=== PATIENT | female | born 1935 | race African-American/Black ===

== ENCOUNTER → 2017-06-12 | Day surgery (SDC) | payer MEDICARE ==
[~2017-06-12] MED LIST: AMIO200T PO; AMLO10 PO; AMMO12LO TOPICAL; ATOR40TA16 PO; BUPIVACAINE HCL PF 0.5% 30 ML VIAL ONE; CHLORHEXIDINE GLUCONATE 2 % 1 PACK (2 CLOTHS) TOPICAL PRN; DILT90TA PO; DO NOT ADM ANY ANTICOAGULANT DRUGS PRN; FAMO1TAB30 PO; GLIP5TAB8 PO; HEPARIN SODIUM - IV 10,000 UNITS/10 ML VIAL ONE; HEPARIN-NS/PF INJ 500 ML ONE; Hemodialysis Vas Acc Cath PRN Heparin 1000 unit/ml Flush IV FLUSH; Hemodialysis Vas Access Cath PRN NS Lock Flush IV FLUSH; LACTATED RINGER'S 1000 ML IV PRN; LANTUS2P SQ; LEVO100T5 PO; LIDOCAINE HCL 1% PF 5 ML SYRINGE OTHER ONE; LISI-515 PO; LORA0.5T PO; METO-424 PO; METO100T PO; METOPROLOL TARTRATE 25 MG TAB PO PRN; NOVOLOGP2 SQ; PHENYLEPH/NS 1000 MCG/10 ML SYR IV ONE; POVIDONE IODINE 5% (ANTISEPSIS KIT) 4 APPLICATIONS EACH NARE PRN; PRAV20TA2 PO; PROPOFOL 200 MG/20 ML AMP IV ONE; PROTAMINE SULFATE 50 MG/5 ML VIAL ONE; RENATAB5 PO; RISP1 PO; SODIUM CHLORID 0.9% 500 ML INJ 500 ML IV ONE; SODIUM CHLORID 0.9% 500 ML IV PRN; SYNT88TA PO; THROMBIN (TOPICAL) 20,000 UNIT SPRAY KIT ONE; TYLE325T PO; VANCOMYCIN HCL 1000 MG VIAL ONE; VITA2000 PO; WARF-18 PO; WARF4TAB51 PO; ePHEDrine/NS 25 MG/5 ML SYRINGE IV ONE
[2017-06-12 11:47] LABS: AUTOMATED NEUTROPHIL # 5.2 TH/MM3 (1.8-7.7); BASOPHIL % 0.5 % (0.0-2.0); EOSINOPHIL % 0.2 % (0.0-4.0); HEMATOCRIT 36.7 % (35.0-46.0); HEMOGLOBIN 12.3 GM/DL (11.6-15.3); LYMPH % 6.7 % (9.0-44.0); LYMPHOCYTE # 0.4 TH/MM3 (1.0-4.8); MEAN CELL VOLUME 93.7 FL (80.0-100.0); MEAN CORPUSCULAR HEMOGLOBIN 31.4 PG (27.0-34.0); MEAN CORPUSCULAR HGB CONC 33.5 % (32.0-36.0); MEAN PLATELET VOLUME 8.9 FL (7.0-11.0); MONO % 4.1 % (0.0-8.0); MONOCYTE # 0.2 TH/MM3 (0-0.9); NEUT % 88.5 % (16.0-70.0); PLATELET COUNT 194 TH/MM3 (150-450); RED BLOOD COUNT 3.92 MIL/MM3 (4.00-5.30); RED CELL DISTRIBUTION WIDTH 13.8 % (11.6-17.2); WHITE BLOOD COUNT 5.9 TH/MM3 (4.0-11.0)
[2017-06-12 11:53] LABS: PROTHROMBIN TIME - PATIENT 10.4 SEC (9.8-11.6)
[2017-06-12 12:06] LABS: BICARBONATE 28.5 MEQ/L (21.0-32.0); CALCIUM 8.6 MG/DL (8.5-10.1); CREATININE 2.77 MG/DL (0.50-1.00)
--- NOTE | 2017-06-12 16:54 | MP ---
cc: Jayden Porter MD, Robert J MD DATE OF OPERATION: 06/12/2017 PREOPERATIVE DIAGNOSIS: Endstage renal disease, need for dialysis access. POSTOPERATIVE DIAGNOSIS: Endstage renal disease, need for dialysis access. PROCEDURE PERFORMED: Left brachial artery axillary vein arteriovenous graft with 6 mm PTFE. SURGEON: Jayden Porter MD JAILOR SURGEON: Rocky Franz MD ANESTHESIA: General. INDICATIONS FOR PROCEDURE: Ms. Shin is an 82-year-old lady who has end-stage renal disease and needs dialysis access. She has no autogenous access option and she is taken to the operating room for left brachial artery axillary vein arteriovenous graft. DESCRIPTION OF PROCEDURE: Informed consent was obtained from the patient and she was taken to the operating room and placed supine on the operating table. An appropriate timeout was taken to ensure the patient's identity, operative site and planned procedure. Administration of 1 gram of vancomycin was initiated prior to skin incision and will be discontinued after a single preoperative dose. Vancomycin was chosen because of the patient's end-stage renal disease. Everyone in the room agreed with the timeout and we proceeded. Of note, the consent was obtained through her son as the patient is somewhat demented. After the patient's left arm was prepped and draped, an incision was made over the antecubital and carried down through subcutaneous tissue with electrocautery. The brachial artery was identified and dissected free for several centimeters. A separate incision was made to the patient's axilla and carried down through subcutaneous tissue with electrocautery. The axillary vein was identified and dissected free. A tunnel was then created between these two and 6 mm PTFE was passed through the tunnel, taking caution not to twist it. The patient was systemically heparinized with 3000 units of IV heparin. Proximal and distal control of the brachial artery was obtained with Profunda clamps and a longitudinal arteriotomy was made with an 11 blade, extended with Bill scissors. The graft was spatulated and sewn end to side to the brachial artery with a running 5-0 Prolene suture. At completion it was flushed and noted to be hemostatic. The clamp was placed on the graft. The proximal and distal control of the axillary vein was obtained with Profunda clamps and a longitudinal arteriotomy was made with an 11 blade and extended with [place] scissors. The graft was spatulated and sewn end to side to the axillary vein with running 5-0 Prolene suture. At the completion, it was flushed and noted to be hemostatic. The graft had a nice thrill in it. The wrist had a nice Doppler signal in it. The heparin was reversed with protamine. The wound was infiltrated with Marcaine and closed with 2-0 Polysorb, 3-0 Polysorb and 4-0 Monocryl. Sponge and needle counts were correct at the end of the case. I was present and scrubbed for the entire procedure. MD SAMANTHA Sargent//aggie , 04:16 PM , 04:38 PM
[2017-06-12 17:05] VITALS: BP 106/57; PULSE 65; RESP 18; TEMP 97.9; O2SAT 98
--- NOTE | 2017-06-12 20:31 | EKG ---
Date Performed: 06/12/2017 Time Performed: 11:19:24 PTAGE: 82 years EKG: Sinus rhythm LEFT ANTERIOR FASCICULAR BLOCK VOLTAGE CRITERIA FOR LVH ANTERIOR MYOCARDIAL INFARCTION ,AGE UNDETERM INED NONSPECIFIC T WAVE CHANGES PREVIOUS TRACING : 02/27/2014 02.08 Compared to previous tracing, sinus rhythm has replac ed atrial fibrillation, possible anterior infarct pattern is now present, heart rate has slowed, nons pecific T wave changes are now evident. DOCTOR: Nilton Lindo Interpretating Date/Time 06/12/2017 20:30:38
== END | disposition home or self-care (01) ==
LOC: HCVO 10:39
PROVIDERS: ATTEND Surgery
DX: N18.6 End stage renal disease (principal); I12.0 Hypertensive chronic kidney disease with stage 5 chronic kidney disease or end stage renal disease; E11.9 Type 2 diabetes mellitus without complications; Z79.4 Long term (current) use of insulin; Z99.2 Dependence on renal dialysis
CPT/HCPCS: 01844; 36830; 80048; 82948; 85025; 85610; 93005; J1644; J2720; J3010; J3370; J7040; J2370